=== PATIENT | male | born 1995 | race Two or more races ===

== ENCOUNTER 2021-08-20 08:41 | Emergency (ER) | payer MEDICAID ==
[~2021-08-20] VITALS: Ht 182.9 cm; Wt 79.0 kg
[2021-08-20] MEDS ORDERED: MORPHINE SULFATE 4 MG/ML CPJ (NOT FOR IM USE) IV STA (09:35)
[2021-08-20] MEDS ORDERED: ONDANSETRON HCL 4MG/2ML INJ IV STA (09:35)
[2021-08-20] MEDS ORDERED: SODIUM CHLORIDE 0.9% 1,000 ML IV ONE (09:45)
[2021-08-20] MEDS ORDERED: MORPHINE SULFATE 4 MG/ML CPJ (NOT FOR IM USE) IV ONE (09:45)
[2021-08-20] MEDS ORDERED: ETOMIDATE 2MG/ML 10ML VIAL IV ONE (09:45)
[2021-08-20 10:59] VITALS: BP 162/95
[2021-08-20] MEDS ORDERED: IBUP-2028 MT (11:46)
[2021-08-20] MEDS ORDERED: HYDR-4001 MT (11:46)
== END 2021-08-20 11:50 | disposition home or self-care (01) ==
LOC: ER 08:41
DX: S43.085A Other dislocation of left shoulder joint, initial encounter (principal); W01.0XXA Fall on same level from slipping, tripping and stumbling without subsequent striking against object, initial encounter; Y93.89 Activity, other specified; Y92.9 Unspecified place or not applicable
CPT/HCPCS: 23650; 73030; 96361; 96374; 99152; 99285; J2270; J2405; J3490; J7030; L3670